=== PATIENT | male | born 1995 | race Caucasian/White ===

== ENCOUNTER → 2017-02-11 | Outpatient (CLI) | payer BC, OTHER ==
[~2017-02-11] MED LIST: ACET1PAK PO; FLNIN NAE; GLGKIT IM; IBUP-103 PO; INSDGI SC; INSUINJ14; MTR500 PO
[2017-02-11 12:17] LABS: ESTIMATED AVERAGE GLUCOSE 214 mg/dl; HA1C FLAG Normal (Normal)
== END | disposition home or self-care (01) ==
LOC: C.LAB1850 09:37
PROVIDERS: ATTEND Physician Assistant
DX: E10.9 Type 1 diabetes mellitus without complications (principal)

== ENCOUNTER → 2017-07-04 | Outpatient (CLI) | payer BC, OTHER ==
[2017-07-04 10:02] LABS: ESTIMATED AVERAGE GLUCOSE 189 mg/dl; HA1C FLAG Normal (Normal)
[2017-07-04 10:25] LABS: ALB/GLOB RATIO 1.1 (0.9-2); ALKALINE PHOSPHATASE 95 U/L (45-117); ALT/SGPT 29 U/L (12-78); AST/SGOT 12 U/L (15-37); BLOOD UREA NITROGEN 19 mg/dl (7-18); BUN/CREATININE RATIO 20.6 (10-20); CALCIUM 8.9 mg/dl (8.5-10.1); CARBON DIOXIDE 28 mmol/L (21-32); CHLORIDE 106 mmol/L (98-107); CREATININE 0.94 mg/dl (0.60-1.40); GLUCOSE 179 mg/dl (70-99); POTASSIUM 4.1 mmol/L (3.5-5.1); SODIUM 140 mmol/L (136-145)
[2017-07-04 10:37] LABS: CHOLESTEROL 197 mg/dl (0-200); HDL CHOLESTEROL 33 mg/dl; LDL CHOLESTEROL CALCULATED 137 mg/dl; TRIGLYCERIDES 133 mg/dl (0-150); VERY LOW DENSITY LIPOPROT CALC 27 mg/dl
[2017-07-04 12:04] LABS: RATIO 11.2 mcg/mg (0-30.0)
== END | disposition home or self-care (01) ==
LOC: C.LAB1850 08:48
PROVIDERS: ATTEND Physician Assistant
DX: E78.5 Hyperlipidemia, unspecified (principal)

== ENCOUNTER → 2017-10-14 | Outpatient (CLI) | payer BC, OTHER ==
[2017-10-14 15:57] LABS: THYROID STIMULATING HORMONE 1.62 uIu/ml (0.300-4.500)
[2017-10-15 06:34] LABS: ESTIMATED AVERAGE GLUCOSE 189 mg/dl; HA1C FLAG Normal (Normal)
== END | disposition home or self-care (01) ==
LOC: C.LAB1850 14:51
PROVIDERS: ATTEND Physician Assistant
DX: E10.65 Type 1 diabetes mellitus with hyperglycemia (principal); R94.6 Abnormal results of thyroid function studies